=== PATIENT | female | born 1980 | race Caucasian/White ===

== ENCOUNTER 2020-03-27 03:12 | Emergency (ER) | payer SELFPAY ==
[2020-03-27] MEDS ORDERED: Acetaminophen 500 MG TAB ONE (04:17)
--- NOTE | 2020-03-27 08:29 | CT ---
PRELIMINARY REPORT/[facility]/EMERGENCY AFTER HOURS PROCEDURE: EXAM: CT Head Without Intravenous Contrast. CLINICAL HISTORY: Pt states she woke from sleep tonight and got up to go to the bathroom. She fainted and struck her he ad on the floor. Now has mild headache; +LOC TECHNIQUE: Axial computed tomography images of the head/brain without intravenous contrast. COMPARISON: None provided. FINDINGS: BRAIN: No acute intraparenchymal hemorrhage. No mass lesion. No CT evidence for acute territorial infarct. N o midline shift or extra-axial collection. VENTRICLES: No hydrocephalus. ORBITS: The orbits are unremarkable. SINUSES AND MASTOIDS: The paranasal sinuses and mastoid air cells are clear. SOFT TISSUES: No significant facial or scalp soft tissue swelling evident. No radiopaque foreign body is seen. BONES: No acute skull fracture. IMPRESSION: No acute intracranial abnormality. ELECTRONICALLY SIGNED BY: Dunia Beckham MD Mar 27, 2020 3:46:36 AM CDT This report is intended for review by the ordering physician only, in accordance of law. If you recei ve this report in error, please call [facility] at [phone]. FINAL REPORT BRAIN CT WITHOUT IV CONTRAST EMERGENCY AFTER HOURS EXAM [id number] HOURS 03/27/2020 FINDINGS/IMPRESSION: No mass or bleed, or other significant acute process. This report is in agreement with preliminary report by [facility]. POS: [facility]RE
--- NOTE | 2020-03-27 08:46 | RAD ---
PORTABLE CHEST: Date: 03/27/2020 HISTORY: Syncope. FINDINGS: Heart size and mediastinum within normal limits. Lungs are clear of infiltrates. No bony findings. IMPRESSION: No active intrathoracic disease. POS: [facility]ON
--- NOTE | 2020-03-31 11:54 | EKG ---
Test Reason : Blood Pressure : / mmHG Vent. Rate : 058 BPM Atrial Rate : 058 BPM P-R Int : 136 ms QRS Dur : 088 ms QT Int : 444 ms P-R-T Axes : 014 061 047 degrees QTc Int : 435 ms Sinus bradycardia with sinus arrhythmia Otherwise normal ECG Confirmed by LIDIA HAMMOND ([id number]), editor & co founder JOEY ARAUJO ([id number]) on 03/31/2020 11:54:24 AM Referred By: Confirmed By:LIDIA HAMMOND
== END 2020-03-27 04:21 | disposition home or self-care (01) ==
LOC: ERS 03:12
DX: R55 Syncope and collapse (principal); E03.9 Hypothyroidism, unspecified; K21.9 Gastro-esophageal reflux disease without esophagitis
CPT/HCPCS: 70450; 71045; 93005; 96360